=== PATIENT | male | born 2000 | race Caucasian/White ===

== ENCOUNTER 2025-02-09 06:49 | Emergency (ER) | payer OTHER ==
[~2025-02-09] VITALS: Ht 185.4 cm; Wt 66.6 kg
[~2025-02-09 06:49] MED LIST: NORCO 5-325 TA1 EACH PO; ULTRAM50 MG PO
[2025-02-09] MEDS ORDERED: IBU600 MG PO (08:10)
[2025-02-09 08:15] VITALS: BP 119/73
== END 2025-02-09 08:16 | disposition home or self-care (01) ==
LOC: ED 06:49
DX: S33.5XXA Sprain of ligaments of lumbar spine, initial encounter (principal); X50.0XXA Overexertion from strenuous movement or load, initial encounter
CPT/HCPCS: 72100; 99283